=== PATIENT | female | born 1935 | race African-American/Black ===

== ENCOUNTER 2020-06-19 12:16 | Inpatient (IN) | payer MEDICARE, MEDICAID ==
[~2020-06-19] VITALS: Ht 157.5 cm; Wt 73.9 kg
[2020-06-19 13:39] LABS: BASOPHILS % 1.2 % (0.0-2.0); EOSINOPHILS % 9.6 % (0.0-5.0); HEMATOCRIT. 35.6 % (36.0-48.0); HEMOGLOBIN. 11.4 g/dL (12.0-16.0); LYMPHOCYTES % 20.2 % (20.0-50.0); MEAN CORPUSCULAR HEMOGLOBIN 27.8 pg (28.0-32.0); MEAN CORPUSCULAR VOLUME 86.9 fL (81.0-99.0); MEAN PLATELET VOLUME 10.5 fl (7.4-10.4); MONOCYTES % 12.5 % (2.0-8.0); NEUTROPHILS % 56.5 % (40.0-76.0); PLATELET 168 x1000/uL (130-400); RED CELL DISTRIBUTION WIDTH 14.9 % (11.6-14.6)
[2020-06-19 13:43] LABS: CHLORIDE 111 mEq/L (98-107)
[2020-06-19 13:47] LABS: INR 1.1; PARTIAL THROMBOPLASTIN TIME 26.2 sec (23.4-31.0); PROTHROMBIN TIME 11.4 sec (9.6-11.0)
[2020-06-19 13:51] LABS: LDL CHOLESTEROL 65 mg/dL (5-100)
[2020-06-19 15:17] LABS: CLARITY URINE CLEAR (CLEAR); COLOR URINE YELLOW (YELLOW); KETONES URINE NEGATIVE (NEGATIVE); LEUKOCYTE ESTERASE URINE TRACE (NEGATIVE); NITRITE URINE NEGATIVE (NEGATIVE); OCCULT BLOOD URINE 2+ (NEGATIVE); PH URINE 7.5 (4.5-8.0); PROTEIN URINE NEGATIVE (NEGATIVE); SPECIFIC GRAVITY URINE 1.021 (1.005-1.030); UROBILINOGEN URINE 0.2 E.U./dL (0.2-1.0)
[2020-06-19] MEDS ORDERED: CEFTRIAXONE 1 G PREMIX 50 ML IV ONE (15:45)
[2020-06-19] MEDS ORDERED: ASPIRIN 325MG EC TABLET PO ONE (15:45)
[2020-06-19] MEDS ORDERED: AZITHROMYCIN 500 MG in DEXT 5% WATER 250 ML IV ONE (15:45)
[2020-06-19] MEDS ORDERED: SODIUM BICARBONATE 8.4% 1 MEQ/ML 50ML SYR IV ONE (16:00)
[2020-06-19] MEDS ORDERED: CLONIDINE 0.1MG TABLET PO PRN (23:15)
[2020-06-19] MEDS ORDERED: HYDROCODONE/ACETAMINOPHEN 5/325MG TABLET PO PRN (23:15)
[2020-06-19] MEDS ORDERED: ONDANSETRON HCL 4MG/2ML INJ IV PRN (23:15)
[2020-06-19] MEDS ORDERED: DOCUSATE SODIUM 100MG CAPSULE PO PRN (23:15)
[2020-06-19] MEDS ORDERED: ACETAMINOPHEN 325MG TABLET PO PRN (23:15)
[2020-06-19] MEDS ORDERED: IPRATROPIUM/ALBUTEROL 0.5-3(2.5)MG/3ML NEB NEB PRN (23:15)
[2020-06-20] VITALS (8 sets, daily range): BP systolic 113–162; BP diastolic 22–85
[2020-06-20] MEDS: ASPIRIN 81MG EC TABLET PO SCH (08:20)
[2020-06-20 09:39] LABS: BASOPHILS % 1.5 % (0.0-2.0); HEMATOCRIT. 36.2 % (36.0-48.0); HEMOGLOBIN. 11.9 g/dL (12.0-16.0); LYMPHOCYTES % 20.1 % (20.0-50.0); MEAN CORPUSCULAR HEMOGLOBIN 28.2 pg (28.0-32.0); MEAN CORPUSCULAR VOLUME 85.8 fL (81.0-99.0); MEAN PLATELET VOLUME 9.2 fl (7.4-10.4); MONOCYTES % 10.3 % (2.0-8.0); NEUTROPHILS % 60.1 % (40.0-76.0); PLATELET 158 x1000/uL (130-400); RED BLOOD CELL COUNT 4.21 mill/uL (4.2-5.4); RED CELL DISTRIBUTION WIDTH 14.7 % (11.6-14.6)
[2020-06-20 09:57] LABS: *AMPHETAMINES SCREEN URINE NEGATIVE (NEGATIVE); *BARBITURATES SCREEN URINE NEGATIVE (NEGATIVE); *BENZODIAZEPINES SCREEN URINE NEGATIVE (NEGATIVE); *COCAINE SCREEN URINE NEGATIVE (NEGATIVE)
[2020-06-20 09:59] LABS: CANNABINOID URINE SCREEN NEGATIVE (NEGATIVE); METHADONE URINE SCREEN NEGATIVE (NEGATIVE); OPIATES URINE SCREEN NEGATIVE (NEGATIVE); PHENCYCLIDINE URINE SCREEN NEGATIVE (NEGATIVE)
[2020-06-20 10:37] LABS: CHLORIDE 107 mEq/L (98-107)
[2020-06-20 10:44] LABS: LDL CHOLESTEROL 67 mg/dL (5-100)
[2020-06-20 10:45] LABS: HDL CHOLESTEROL 69 mg/dL (40-59)
[2020-06-20 10:46] LABS: CREATINE KINASE 228 IU/L (26-192)
[2020-06-20 10:49] LABS: CREATINE KINASE MB FRACTION < 1.0 ng/mL (0.5-3.6)
[2020-06-20] MEDS ORDERED: DEXTROSE 50% WATER 50ML SYRINGE IV PRN (12:45)
[2020-06-20] MEDS: INSULIN LISPRO 100 UNITS/ML SUBCUT SCH ×3 (12:49→21:00)
[2020-06-20] MEDS: BLOOD SUGAR DIAGNOSTIC STRIP TEST SCH ×3 (12:49→21:38)
[2020-06-20] MEDS: ENOXAPARIN 40MG/0.4ML SYR SUBCUT SCH (13:26)
[2020-06-20 18:09] LABS: CREATINE KINASE 205 IU/L (26-192)
[2020-06-20 18:11] LABS: CREATINE KINASE MB FRACTION < 1.0 ng/mL (0.5-3.6); T4 FREE 1.02 ng/dL (0.76-1.46)
[2020-06-20 18:32] LABS: VITAMIN B12 SERUM 552 pg/mL (211-911)
[2020-06-20 18:33] LABS: FOLIC ACID (FOLATE) SERUM > 20.00 ng/mL (>5.38)
[2020-06-21 00:51] VITALS: BP 156/78
[2020-06-21 04:00] VITALS: BP 119/59
[2020-06-21] MEDS: BLOOD SUGAR DIAGNOSTIC STRIP TEST SCH ×4 (06:54→21:44)
[2020-06-21 08:42] VITALS: BP 135/68
[2020-06-21] MEDS: ENOXAPARIN 40MG/0.4ML SYR SUBCUT SCH (09:39)
[2020-06-21] MEDS: INSULIN LISPRO 100 UNITS/ML SUBCUT SCH ×4 (09:41→21:00)
[2020-06-21] MEDS: CLOPIDOGREL 75MG TABLET PO SCH (09:42)
[2020-06-21] MEDS: ASPIRIN 81MG EC TABLET PO SCH (09:42)
[2020-06-21 12:52] VITALS: BP 135/68
[2020-06-21 16:21] VITALS: BP 154/65
[2020-06-21 20:00] VITALS: BP 146/58
[2020-06-22] VITALS (8 sets, daily range): BP systolic 126–166; BP diastolic 55–73
[2020-06-22] MEDS: BLOOD SUGAR DIAGNOSTIC STRIP TEST SCH ×4 (05:31→21:22)
[2020-06-22] MEDS: INSULIN LISPRO 100 UNITS/ML SUBCUT SCH ×4 (05:31→21:00)
[2020-06-22 07:14] LABS: HEMATOCRIT. 34.3 % (36.0-48.0); HEMOGLOBIN. 11.1 g/dL (12.0-16.0); MEAN CORPUSCULAR HEMOGLOBIN 27.9 pg (28.0-32.0); MEAN CORPUSCULAR VOLUME 86.1 fL (81.0-99.0); MEAN PLATELET VOLUME 9.3 fl (7.4-10.4); PLATELET 158 x1000/uL (130-400); RED BLOOD CELL COUNT 3.99 mill/uL (4.2-5.4); RED CELL DISTRIBUTION WIDTH 14.7 % (11.6-14.6)
[2020-06-22 07:41] LABS: CHLORIDE 109 mEq/L (98-107)
[2020-06-22] MEDS: ASPIRIN 81MG EC TABLET PO SCH (09:45)
[2020-06-22] MEDS: CLOPIDOGREL 75MG TABLET PO SCH (09:45)
[2020-06-22] MEDS: ENOXAPARIN 40MG/0.4ML SYR SUBCUT SCH (09:45)
[2020-06-22] MEDS ORDERED: POTASSIUM CHLORIDE 20MEQ TABLET SR PO NR (17:00)
[2020-06-23] VITALS: BP 135/61
[2020-06-23 04:30] VITALS: BP 140/60
[2020-06-23] MEDS: BLOOD SUGAR DIAGNOSTIC STRIP TEST SCH ×2 (06:36→12:01)
[2020-06-23] MEDS: INSULIN LISPRO 100 UNITS/ML SUBCUT SCH ×2 (07:47→12:01)
[2020-06-23 07:58] LABS: CHLORIDE 108 mEq/L (98-107)
[2020-06-23 08:00] VITALS: BP 109/61
[2020-06-23 08:03] LABS: BASOPHILS % 1.2 % (0.0-2.0); EOSINOPHILS % 9.8 % (0.0-5.0); HEMATOCRIT. 35.3 % (36.0-48.0); HEMOGLOBIN. 11.5 g/dL (12.0-16.0); LYMPHOCYTES % 25.4 % (20.0-50.0); MEAN CORPUSCULAR HEMOGLOBIN 27.9 pg (28.0-32.0); MEAN CORPUSCULAR VOLUME 85.8 fL (81.0-99.0); MEAN PLATELET VOLUME 9.2 fl (7.4-10.4); MONOCYTES % 14.3 % (2.0-8.0); NEUTROPHILS % 49.3 % (40.0-76.0); PLATELET 161 x1000/uL (130-400); RED BLOOD CELL COUNT 4.11 mill/uL (4.2-5.4); RED CELL DISTRIBUTION WIDTH 14.4 % (11.6-14.6)
[2020-06-23] MEDS: ENOXAPARIN 40MG/0.4ML SYR SUBCUT SCH (08:52)
[2020-06-23] MEDS: ASPIRIN 81MG EC TABLET PO SCH (08:52)
[2020-06-23] MEDS: CLOPIDOGREL 75MG TABLET PO SCH (08:52)
[2020-06-23 11:23] LABS: PLATELET ESTIMATE NORMAL
[2020-06-23 12:00] VITALS: BP 113/65
[2020-06-23 16:00] VITALS: BP 137/62
[2020-06-23] MEDS ORDERED: CLOP75TA4 MT (16:24)
[2020-06-23] MEDS ORDERED: ATOR20TA65 MT (16:24)
[2020-06-23] MEDS ORDERED: ASPI-1158 MT (16:24)
[2020-06-23 17:13] VITALS: BP 137/62
== END 2020-06-23 18:00 | disposition home or self-care (01) | DRG 65 ==
LOC: ER 12:16 → MICUSO 16:42 → 7WST 23:57 → 6WST 06-20 18:11
PROVIDERS: ADMIT Internal Medicine; ATTEND Internal Medicine
DX: I63.9 Cerebral infarction, unspecified (principal); M62.82 Rhabdomyolysis; G81.94 Hemiplegia, unspecified affecting left nondominant side; E78.5 Hyperlipidemia, unspecified; E78.00 Pure hypercholesterolemia, unspecified; E11.9 Type 2 diabetes mellitus without complications; Z20.828 Contact with and (suspected) exposure to other viral communicable diseases; D64.9 Anemia, unspecified; E04.2 Nontoxic multinodular goiter; I11.9 Hypertensive heart disease without heart failure; R26.89 Other abnormalities of gait and mobility; I27.21 Secondary pulmonary arterial hypertension; Z86.73 Personal history of transient ischemic attack (TIA), and cerebral infarction without residual deficits; Z82.49 Family history of ischemic heart disease and other diseases of the circulatory system; D72.819 Decreased white blood cell count, unspecified; M79.609 Pain in unspecified limb
CPT/HCPCS: 36415; 70496; 70498; 70551; 71045; 80048; 80053; 80061; 80305; 81003; 82550; 82553; 82607; 82746; 82962; 83036; 83605; 83721; 83735; 84439; 84443; 84481; 84484; 85025; 87635; 92523; 92610; 93005; 93306; 93970; 97110; 97162; 97166; 99291; J0456; J0696; J1650; J1815; J3490; J7060

== ENCOUNTER 2023-03-28 13:33 | Inpatient (IN) | payer OTHER, MEDICAID ==
[~2023-03-28] VITALS: Ht 165.1 cm; Wt 70.3 kg
[~2023-03-28 13:33] MED LIST: ASPI-1406 MT; ATOR20TA65 MT; CLOP-31 MT
[2023-03-28 14:03] LABS: BG BASE EXCESS 1.2 mmol/L (-2.0-2.0); BG CARBOXYHEMOGLOBIN 0.3 % (0.5-1.5); BG DEOXYHEMOGLOBIN 0.8 % (0.0-5.0); BG HCO3 ACT 25.8 mmol/L (22.0-26.0); BG METHEMOGLOBIN 0.5 % (0.0-1.5); BG OXYGEN SATURATION 99.2 % (92.0-98.5); BG OXYHEMOGLOBIN 98.4 % (94.0-97.0); BG PCO2 40.7 mmHg (35.0-45.0); BG PO2 155.5 mmHg (75.0-100.0); BG SAMPLE SITE RIGHT RADIAL; BG VENT MODE MASK - NRB
[2023-03-28] MEDS ORDERED: VANCOMYCIN 1G PREMIX 200 ML IV SCH (14:15)
[2023-03-28] MEDS ORDERED: CEFEPIME 1,000 MG in DEXTROSE 5% WATER 50 ML IV SCH (14:15)
[2023-03-28] MEDS ORDERED: IPRATROPIUM/ALBUTEROL 0.5-3(2.5)MG/3ML NEB HHN ONE (14:15)
[2023-03-28] MEDS ORDERED: METHYLPREDNISOLONE SOD SUCC 125 MG/2 ML VIAL IV ONE (14:15)
[2023-03-28 14:20] LABS: MEAN CORPUSCULAR HEMOGLOBIN 27.3 pg (28.0-32.0); MEAN CORPUSCULAR VOLUME 85.2 fL (81.0-99.0); MEAN PLATELET VOLUME 8.5 fl (7.4-10.4); PLATELET 524 x1000/uL (130-400); RED BLOOD CELL COUNT 2.94 mill/uL (4.2-5.4); RED CELL DISTRIBUTION WIDTH 16.2 % (11.6-14.6)
[2023-03-28 14:28] LABS: CHLORIDE 109 mEq/L (98-107); INR 1.4; PROTHROMBIN TIME 15.1 sec (9.6-11.0)
[2023-03-28 14:49] LABS: PLATELET ESTIMATE INCREASED
[2023-03-28] MEDS ORDERED: FUROSEMIDE 40MG/4ML VIAL IVP ONE (15:00)
[2023-03-28] MEDS ORDERED: KCL 20MEQ/100ML PREMIX 100 ML IV ONE (15:00)
[2023-03-28] MEDS ORDERED: ASPIRIN 325MG EC TABLET PO ONE (15:45)
[2023-03-28] MEDS ORDERED: FUROSEMIDE 40MG/4ML VIAL IVP NR (15:45)
[2023-03-28 21:00] VITALS: BP 137/70
[2023-03-28 22:09] VITALS: BP 137/70
[2023-03-28] MEDS ORDERED: IPRATROPIUM/ALBUTEROL 0.5-3(2.5)MG/3ML NEB HHN PRN (22:45)
[2023-03-28] MEDS ORDERED: FUROSEMIDE 40MG/4ML VIAL IVP SCH (22:45)
[2023-03-28] MEDS ORDERED: PIPERACILLIN/TAZ 3.375G PREMIX 50 ML IV NR (23:15)
[2023-03-29] VITALS: BP 118/70
[2023-03-29] MEDS: PIPERACILLIN/TAZOBACTAM 3.375 G in DEXTROSE 5% WATER 50 ML IV SCH ×3 (01:43→22:00)
[2023-03-29] MEDS ORDERED: DEXTROSE 50% WATER 50ML SYRINGE IV PRN (02:00)
[2023-03-29] MEDS ORDERED: BLOOD SUGAR DIAGNOSTIC STRIP TEST SCH ×2 (02:00→05:15)
[2023-03-29] MEDS: INSULIN LISPRO 100 UNITS/ML SUBCUT SCH ×4 (02:31→21:55)
[2023-03-29 04:00] VITALS: BP 152/73
[2023-03-29] MEDS: VANCOMYCIN 1G PREMIX 200 ML IV SCH (05:31)
[2023-03-29] MEDS: FUROSEMIDE 40MG/4ML VIAL IVP SCH ×2 (05:31→20:39)
[2023-03-29] MEDS ORDERED: PIPERACILLIN/TAZOBACTAM 3.375 G in DEXTROSE 5% WATER 50 ML IV SCH (06:00)
[2023-03-29 06:47] LABS: CHLORIDE 107 mEq/L (98-107); HEMATOCRIT 24.7 % (36.0-48.0); HEMOGLOBIN 8.3 g/dL (12.0-16.0); MEAN CORPUSCULAR HEMOGLOBIN 27.8 pg (28.0-32.0); MEAN CORPUSCULAR VOLUME 82.8 fL (81.0-99.0); PLATELET 553 x1000/uL (130-400); RED BLOOD CELL COUNT 2.99 mill/uL (4.2-5.4); RED CELL DISTRIBUTION WIDTH 16.3 % (11.6-14.6)
[2023-03-29 08:00] VITALS: BP 124/64
[2023-03-29] MEDS: BLOOD SUGAR DIAGNOSTIC STRIP TEST SCH ×3 (08:00→21:35)
[2023-03-29 08:22] LABS: HDL CHOLESTEROL 32 mg/dL (40-59)
[2023-03-29 09:10] LABS: LDL CHOLESTEROL 38 mg/dL (5-100)
[2023-03-29] MEDS: LISINOPRIL 20MG TABLET GT SCH (11:35)
[2023-03-29] MEDS: ASPIRIN 81MG TABLET GT SCH (11:35)
[2023-03-29] MEDS: CLOPIDOGREL 75MG TABLET GT SCH (11:35)
[2023-03-29 12:00] VITALS: BP 118/74
[2023-03-29] MEDS: CARVEDILOL 3.125 MG TABLET PO SCH ×2 (12:32→21:55)
[2023-03-29] MEDS ORDERED: BUMETANIDE 2.5MG/10ML VIAL IV NR (14:00)
[2023-03-29 16:00] VITALS: BP 135/69
[2023-03-29] MEDS ORDERED: POTASSIUM CHLORIDE 20MEQ TABLET SR PO NR (19:00)
[2023-03-29 20:00] VITALS: BP 144/62
[2023-03-29] MEDS: ATORVASTATIN CALCIUM 20MG TABLET GT SCH (21:55)
[2023-03-30] VITALS (29 sets, daily range): BP systolic 51–154; BP diastolic 27–67
[2023-03-30] MEDS: BLOOD SUGAR DIAGNOSTIC STRIP TEST SCH ×4 (02:22→20:00)
[2023-03-30] MEDS: INSULIN LISPRO 100 UNITS/ML SUBCUT SCH ×4 (02:26→20:00)
[2023-03-30] MEDS: VANCOMYCIN 1G PREMIX 200 ML IV SCH (05:00)
[2023-03-30] MEDS: PIPERACILLIN/TAZOBACTAM 3.375 G in DEXTROSE 5% WATER 50 ML IV SCH ×3 (06:04→23:51)
[2023-03-30 06:16] LABS: CHLORIDE 108 mEq/L (98-107)
[2023-03-30 07:15] LABS: HEMATOCRIT. 29.3 % (36.0-48.0); HEMOGLOBIN. 9.1 g/dL (12.0-16.0); MEAN CORPUSCULAR HEMOGLOBIN 27.4 pg (28.0-32.0); MEAN CORPUSCULAR VOLUME 88.2 fL (81.0-99.0); MEAN PLATELET VOLUME 9.1 fl (7.4-10.4); PLATELET 556 x1000/uL (130-400); RED BLOOD CELL COUNT 3.32 mill/uL (4.2-5.4); RED CELL DISTRIBUTION WIDTH 17.1 % (11.6-14.6)
[2023-03-30] MEDS: ASPIRIN 81MG TABLET GT SCH (08:49)
[2023-03-30] MEDS: CARVEDILOL 3.125 MG TABLET PO SCH ×2 (08:51→21:00)
[2023-03-30] MEDS: LISINOPRIL 20MG TABLET GT SCH (08:52)
[2023-03-30] MEDS: CLOPIDOGREL 75MG TABLET GT SCH (08:52)
[2023-03-30] MEDS ORDERED: POTASSIUM CHLORIDE 20MEQ TABLET SR PO NR (09:00)
[2023-03-30 10:15] LABS: BG BASE EXCESS 9.8 mmol/L (-2.0-2.0); BG CARBOXYHEMOGLOBIN 0.3 % (0.5-1.5); BG FRACTION INSPIRED OXYGEN 100; BG HCO3 ACT 35.3 mmol/L (22.0-26.0); BG METHEMOGLOBIN 0.3 % (0.0-1.5); BG OXYHEMOGLOBIN 92.4 % (94.0-97.0); BG PH 7.441 (7.350-7.450); BG PO2 65.5 mmHg (75.0-100.0); BG SAMPLE SITE LEFT RADIAL; BG TOTAL HEMOGLOBIN 9.5 g/dL (12.0-18.0); BG VENT MODE MASK - NRB
[2023-03-30 11:45] LABS: PHOSPHORUS 1.1 mg/dL (2.5-4.9)
[2023-03-30] MEDS ORDERED: FLUDROCORTISONE ACETATE 0.1MG TABLET PO SCH (12:00)
[2023-03-30 13:08] LABS: BG CARBOXYHEMOGLOBIN 0.3 % (0.5-1.5); BG DEOXYHEMOGLOBIN 7.9 % (0.0-5.0); BG FRACTION INSPIRED OXYGEN 100; BG HCO3 ACT 35.1 mmol/L (22.0-26.0); BG METHEMOGLOBIN 0.1 % (0.0-1.5); BG OXYGEN SATURATION 92.1 % (92.0-98.5); BG OXYHEMOGLOBIN 91.7 % (94.0-97.0); BG PCO2 50.3 mmHg (35.0-45.0); BG PH 7.461 (7.350-7.450); BG PO2 61.5 mmHg (75.0-100.0); BG SAMPLE SITE LEFT RADIAL; BG VENT MODE HIGH FLOW
[2023-03-30] MEDS ORDERED: HYDROCORTISONE SOD SUCCINATE 100 MG/2 ML VIAL IV SCH ×2 (14:00)
[2023-03-30] MEDS: METHYLPREDNISOLONE SOD SUCC 40 MG/ML VIAL IV SCH (14:25)
[2023-03-30] MEDS ORDERED: MIDAZOLAM 100MG/100ML PMX 100 ML IV PRN (16:15)
[2023-03-30] MEDS ORDERED: MIDAZOLAM HCL 100 MG in SODIUM CHLORIDE 0.9% 100 ML IV PRN (16:15)
[2023-03-30 17:48] LABS: BG BASE EXCESS 7.8 mmol/L (-2.0-2.0); BG CARBOXYHEMOGLOBIN 0.3 % (0.5-1.5); BG DEOXYHEMOGLOBIN 0.6 % (0.0-5.0); BG FRACTION INSPIRED OXYGEN 100; BG HCO3 ACT 33.4 mmol/L (22.0-26.0); BG METHEMOGLOBIN 0.1 % (0.0-1.5); BG OXYGEN SATURATION 99.4 % (92.0-98.5); BG PCO2 53.3 mmHg (35.0-45.0); BG PH 7.415 (7.350-7.450); BG PO2 264.7 mmHg (75.0-100.0); BG SAMPLE SITE RIGHT RADIAL; BG VENT MODE VENT - AC
[2023-03-30 18:59] LABS: PLATELET ESTIMATE INCREASED
[2023-03-30] MEDS ORDERED: NOREPINEPHRINE 32 MG in DEXT 5% WATER 218 ML IV PRN (19:15)
[2023-03-30] MEDS: IPRATROPIUM/ALBUTEROL 0.5-3(2.5)MG/3ML NEB HHN SCH (20:19)
[2023-03-30] MEDS: ATORVASTATIN CALCIUM 20MG TABLET GT SCH (21:59)
[2023-03-31] VITALS (23 sets, daily range): BP systolic 80–120; BP diastolic 42–68
[2023-03-31] MEDS: IPRATROPIUM/ALBUTEROL 0.5-3(2.5)MG/3ML NEB HHN SCH ×2 (01:43→08:05)
[2023-03-31] MEDS: INSULIN LISPRO 100 UNITS/ML SUBCUT SCH ×2 (02:00→08:00)
[2023-03-31] MEDS: BLOOD SUGAR DIAGNOSTIC STRIP TEST SCH ×2 (02:40→08:00)
[2023-03-31 05:03] LABS: HEMATOCRIT. 25.1 % (36.0-48.0); MEAN PLATELET VOLUME 8.9 fl (7.4-10.4); PLATELET 505 x1000/uL (130-400); RED BLOOD CELL COUNT 2.95 mill/uL (4.2-5.4); RED CELL DISTRIBUTION WIDTH 16.9 % (11.6-14.6)
[2023-03-31] MEDS: PIPERACILLIN/TAZOBACTAM 3.375 G in DEXTROSE 5% WATER 50 ML IV SCH (06:56)
[2023-03-31 07:45] LABS: BG BASE EXCESS 5.3 mmol/L (-2.0-2.0); BG CARBOXYHEMOGLOBIN 0.7 % (0.5-1.5); BG DEOXYHEMOGLOBIN 8.3 % (0.0-5.0); BG HCO3 ACT 30.3 mmol/L (22.0-26.0); BG METHEMOGLOBIN 0.7 % (0.0-1.5); BG OXYGEN SATURATION 91.6 % (92.0-98.5); BG OXYHEMOGLOBIN 90.3 % (94.0-97.0); BG PCO2 47.3 mmHg (35.0-45.0); BG PH 7.425 (7.350-7.450); BG PO2 57.5 mmHg (75.0-100.0); BG SAMPLE SITE RIGHT BRACHIAL; BG TOTAL HEMOGLOBIN 9.3 g/dL (12.0-18.0); BG VENT MODE VENT - AC
[2023-03-31] MEDS ORDERED: SODIUM CHLORIDE 0.45% 1,000 ML IV SCH (08:45)
[2023-03-31] MEDS: LISINOPRIL 20MG TABLET GT SCH (09:00)
[2023-03-31] MEDS: CARVEDILOL 3.125 MG TABLET PO SCH (09:00)
[2023-03-31 09:14] LABS: PLATELET ESTIMATE INCREASED
[2023-03-31] MEDS ORDERED: MORPHINE SULFATE 2 MG/ML CPJ (NOT FOR IM USE) IV SCH (09:40)
[2023-03-31] MEDS ORDERED: FENTANYL CITRATE/PF 2,500 MCG in SODIUM CHLORIDE 0.9% 200 ML IV PRN (09:45)
[2023-03-31] MEDS: METHYLPREDNISOLONE SOD SUCC 40 MG/ML VIAL IV SCH (10:28)
[2023-03-31] MEDS: ASPIRIN 81MG TABLET GT SCH (10:28)
[2023-03-31] MEDS: CLOPIDOGREL 75MG TABLET GT SCH (10:29)
[2023-03-31] MEDS ORDERED: PHENYLEPHRINE 100 MG in DEXT 5% WATER 240 ML IV PRN (11:00)
[2023-03-31] MEDS ORDERED: VANCOMYCIN 750MG PREMIX 150 ML IV SCH (12:00)
[2023-03-31 12:58] LABS: BG CARBOXYHEMOGLOBIN 0.3 % (0.5-1.5); BG DEOXYHEMOGLOBIN 16.3 % (0.0-5.0); BG HCO3 ACT 33.5 mmol/L (22.0-26.0); BG METHEMOGLOBIN 0.3 % (0.0-1.5); BG OXYGEN SATURATION 83.6 % (92.0-98.5); BG OXYHEMOGLOBIN 83.1 % (94.0-97.0); BG PCO2 52.8 mmHg (35.0-45.0); BG PO2 49.3 mmHg (75.0-100.0); BG SAMPLE SITE RIGHT BRACHIAL; BG TOTAL HEMOGLOBIN 8.9 g/dL (12.0-18.0); BG VENT MODE VENT - P/C
[2023-03-31] MEDS ORDERED: VASOPRESSIN 20 UNIT in SODIUM CHLORIDE 0.9% 99 ML IV PRN (13:30)
== END 2023-03-31 14:07 | DRG 871 ==
LOC: ER 13:33 → 7WST 16:11 → EDBEDREQ 16:15 → MICUSO 03-30 15:36
PROVIDERS: ADMIT Internal Medicine; ATTEND Internal Medicine
PROC: 0BH17EZ Insertion of Endotracheal Airway into Trachea, Via Natural or Artificial Opening (ICD-10-PCS; principal; 2023-03-30)
PROC: 5A1935Z Respiratory Ventilation, Less than 24 Consecutive Hours (ICD-10-PCS; 2023-03-30)
PROC: 5A0935A Assistance with Respiratory Ventilation, Less than 24 Consecutive Hours, High Flow/Velocity Cannula (ICD-10-PCS; 2023-03-30)
DX: A41.9 Sepsis, unspecified organism (principal); E43 Unspecified severe protein-calorie malnutrition; J96.01 Acute respiratory failure with hypoxia; J69.0 Pneumonitis due to inhalation of food and vomit; I50.33 Acute on chronic diastolic (congestive) heart failure; I21.A1 Myocardial infarction type 2; J96.02 Acute respiratory failure with hypercapnia; I13.0 Hypertensive heart and chronic kidney disease with heart failure and stage 1 through stage 4 chronic kidney disease, or unspecified chronic kidney disease; J84.9 Interstitial pulmonary disease, unspecified; Z68.25 Body mass index [BMI] 25.0-25.9, adult; Z20.822 Contact with and (suspected) exposure to COVID-19; Z66 Do not resuscitate; F03.90 Unspecified dementia, unspecified severity, without behavioral disturbance, psychotic disturbance, mood disturbance, and anxiety; I27.20 Pulmonary hypertension, unspecified; E87.6 Hypokalemia; R13.10 Dysphagia, unspecified; E78.00 Pure hypercholesterolemia, unspecified; D75.839 Thrombocytosis, unspecified; N18.9 Chronic kidney disease, unspecified; D63.1 Anemia in chronic kidney disease; L89.150 Pressure ulcer of sacral region, unstageable; J45.909 Unspecified asthma, uncomplicated; E11.22 Type 2 diabetes mellitus with diabetic chronic kidney disease; Z93.1 Gastrostomy status; Z79.4 Long term (current) use of insulin
CPT/HCPCS: 36415; 36600; 71045; 80048; 80053; 80061; 80202; 82375; 82805; 82962; 83036; 83605; 83735; 83880; 84100; 84132; 84145; 84484; 85025; 85027; 86038; 87426; 93005; 94640; 99291; C9803; J0692; J1815; J1940; J2270; J2543; J2920; J2930; J3370; J3480; J3490; J7060; A4315